=== PATIENT | male | born 1990 | race Caucasian/White ===

== ENCOUNTER 2019-08-03 09:29 | Emergency (ER) | payer MEDICAID ==
[~2019-08-03] VITALS: Ht 180.3 cm; Wt 91.0 kg
[2019-08-03] MEDS ORDERED: KETOROLAC 60MG/2ML VIAL IM ONE (12:45)
[2019-08-03 14:35] VITALS: BP 135/82
== END 2019-08-03 14:38 | disposition home or self-care (01) ==
LOC: ER 09:29
DX: S02.652A Fracture of angle of left mandible, initial encounter for closed fracture (principal); Y04.2XXA Assault by strike against or bumped into by another person, initial encounter; Y93.89 Activity, other specified; Y92.89 Other specified places as the place of occurrence of the external cause; K02.9 Dental caries, unspecified; K04.7 Periapical abscess without sinus
CPT/HCPCS: 70110; 96372; 99283; J1885

== ENCOUNTER 2021-11-19 10:56 | Emergency (ER) | payer SELFPAY ==
[~2021-11-19] VITALS: Ht 180.3 cm; Wt 86.0 kg
[2021-11-19 11:07] VITALS: BP 130/85
[2021-11-19] MEDS ORDERED: SODIUM CHLORIDE 0.9% 1,000 ML IV ONE (12:00)
[2021-11-19] MEDS ORDERED: ACETAMINOPHEN 325MG TABLET PO ONE (12:30)
[2021-11-19 12:35] LABS: BASOPHILS % 0.3 % (0.0-2.0); EOSINOPHILS % 0.7 % (0.0-5.0); HEMATOCRIT. 48.3 % (42.0-52.0); HEMOGLOBIN. 16.5 g/dL (14.0-18.0); LYMPHOCYTES % 21.9 % (20.0-50.0); MEAN CORPUSCULAR HEMOGLOBIN 29.7 pg (28.0-32.0); MEAN PLATELET VOLUME 8.7 fl (7.4-10.4); NEUTROPHILS % 72.1 % (40.0-76.0); PLATELET 284 x1000/uL (130-400); RED BLOOD CELL COUNT 5.55 mill/uL (4.7-6.1); RED CELL DISTRIBUTION WIDTH 13.4 % (11.6-14.6)
[2021-11-19 12:44] LABS: CHLORIDE 109 mEq/L (98-107)
[2021-11-19 12:51] LABS: ETHANOL BLOOD 127 mg/dL
== END 2021-11-19 17:19 | disposition home or self-care (01) ==
LOC: ER 10:58
DX: R51.9 Headache, unspecified (principal); F10.129 Alcohol abuse with intoxication, unspecified; Y90.6 Blood alcohol level of 120-199 mg/100 ml
CPT/HCPCS: 36415; 80053; 80320; 85025; 99283; J7030; G0480

== ENCOUNTER 2022-02-23 16:06 | Emergency (ER) | payer SELFPAY ==
[~2022-02-23] VITALS: Ht 177.8 cm; Wt 82.0 kg
[2022-02-23] MEDS ORDERED: SODIUM CHLORIDE 0.9% 1,000 ML IV ONE (16:30)
[2022-02-23 16:48] LABS: BASOPHILS % 0.3 % (0.0-2.0); EOSINOPHILS % 0.3 % (0.0-5.0); HEMOGLOBIN. 15.8 g/dL (14.0-18.0); LYMPHOCYTES % 22.7 % (20.0-50.0); MEAN CORPUSCULAR HEMOGLOBIN 29.2 pg (28.0-32.0); MEAN CORPUSCULAR VOLUME 86.9 fL (80.0-94.0); MEAN PLATELET VOLUME 8.5 fl (7.4-10.4); NEUTROPHILS % 71.7 % (40.0-76.0); PLATELET 267 x1000/uL (130-400); RED BLOOD CELL COUNT 5.41 mill/uL (4.7-6.1); RED CELL DISTRIBUTION WIDTH 13.1 % (11.6-14.6)
[2022-02-23 16:52] LABS: CHLORIDE 110 mEq/L (98-107)
[2022-02-23 16:56] LABS: ETHANOL BLOOD < 10 mg/dL
[2022-02-23] MEDS ORDERED: CHLORDIAZEPOXIDE 25MG CAPSULE PO ONE (17:45)
[2022-02-23] MEDS ORDERED: CHLORDIAZEPOXIDE 25MG CAPSULE PO NR (18:15)
[2022-02-23] MEDS ORDERED: CHLO25CA10 PO (19:29)
[2022-02-23] MEDS ORDERED: L25 MT (19:33)
[2022-02-23 22:00] VITALS: BP 112/63
[2022-02-23] MEDS ORDERED: CHLORDIAZEPOXIDE 25MG CAPSULE PO SCH (22:00)
== END 2022-02-23 22:15 | disposition home or self-care (01) ==
LOC: ER 16:06
DX: F10.239 Alcohol dependence with withdrawal, unspecified (principal); Y90.0 Blood alcohol level of less than 20 mg/100 ml; R07.89 Other chest pain; R06.02 Shortness of breath
CPT/HCPCS: 36415; 80048; 80320; 85025; 93005; 96360; 99285; J7030; G0480

== ENCOUNTER 2022-09-24 07:08 | Emergency (ER) | payer MEDICAID ==
[~2022-09-24] VITALS: Ht 180.3 cm; Wt 96.6 kg
[~2022-09-24 07:08] MED LIST: L25 MT
[2022-09-24 07:13] VITALS: BP 133/86
[2022-09-24] MEDS ORDERED: ACET-2708 MT (08:38)
[2022-09-24] MEDS ORDERED: IBUP-2028 MT (08:38)
== END 2022-09-24 09:22 | disposition home or self-care (01) ==
LOC: ER 07:08
DX: M25.521 Pain in right elbow (principal); M25.522 Pain in left elbow
CPT/HCPCS: 99281; 99282

== ENCOUNTER 2022-11-16 14:57 | Emergency (ER) | payer MEDICAID ==
[~2022-11-16] VITALS: Ht 177.8 cm; Wt 86.0 kg
[~2022-11-16 14:57] MED LIST changes: +ACET-2708 MT; +IBUP-2028 MT
[2022-11-16] MEDS ORDERED: PANTOPRAZOLE SODIUM 40 MG/VIAL IV ONE (16:15)
[2022-11-16] MEDS ORDERED: SODIUM CHLORIDE 0.9% 1,000 ML IV ONE (16:15)
[2022-11-16] MEDS ORDERED: LORAZEPAM 1MG TABLET PO ONE (16:15)
[2022-11-16 16:17] LABS: BASOPHILS % 0.3 % (0.0-2.0); EOSINOPHILS % 0.2 % (0.0-5.0); HEMATOCRIT. 47.4 % (42.0-52.0); HEMOGLOBIN. 16.2 g/dL (14.0-18.0); LYMPHOCYTES % 19.3 % (20.0-50.0); MEAN CORPUSCULAR HEMOGLOBIN 30.3 pg (28.0-32.0); MEAN CORPUSCULAR VOLUME 88.7 fL (80.0-94.0); MEAN PLATELET VOLUME 8.9 fl (7.4-10.4); MONOCYTES % 5.4 % (2.0-8.0); NEUTROPHILS % 74.8 % (40.0-76.0); PLATELET 271 x1000/uL (130-400); RED BLOOD CELL COUNT 5.34 mill/uL (4.7-6.1); RED CELL DISTRIBUTION WIDTH 13.6 % (11.6-14.6)
[2022-11-16 16:28] LABS: CHLORIDE 109 mEq/L (98-107)
[2022-11-16] MEDS ORDERED: FAMO40TA70 MT (19:59)
[2022-11-16] MEDS ORDERED: L25 MT (19:59)
[2022-11-16] MEDS ORDERED: ACET-2708 MT (19:59)
[2022-11-16 20:00] VITALS: BP 127/71
== END 2022-11-16 20:11 | disposition home or self-care (01) ==
LOC: ER 14:57
DX: R06.02 Shortness of breath (principal)
CPT/HCPCS: 36415; 71045; 80053; 83880; 84484; 85025; 93005; 96374; 99285; C9113; J7030

== ENCOUNTER 2023-01-21 12:08 | Emergency (ER) | payer MEDICAID ==
[~2023-01-21] VITALS: Ht 180.3 cm; Wt 91.0 kg
[~2023-01-21 12:08] MED LIST changes: +FAMO40TA70 MT; -L25 MT
[2023-01-21 12:11] VITALS: BP 153/103; RESP 18; TEMP 98.5; O2SAT 99
[2023-01-21 12:12] VITALS: PULSE 138
== END 2023-01-21 16:28 ==
LOC: ER 12:10
DX: R00.2 Palpitations (principal); Z13.9 Encounter for screening, unspecified
CPT/HCPCS: 93005; 99283

== ENCOUNTER 2023-02-18 15:00 | Emergency (ER) | payer MEDICAID ==
[~2023-02-18] VITALS: Ht 177.8 cm; Wt 65.0 kg
[2023-02-18 15:02] VITALS: O2SAT 96
[2023-02-18] MEDS ORDERED: LORAZEPAM 1MG TABLET PO ONE (15:30)
[2023-02-18 16:01] LABS: BASOPHILS % 0.4 % (0.0-2.0); EOSINOPHILS % 1.2 % (0.0-5.0); HEMATOCRIT. 42.3 % (42.0-52.0); HEMOGLOBIN. 14.5 g/dL (14.0-18.0); LYMPHOCYTES % 34.3 % (20.0-50.0); MEAN CORPUSCULAR HEMOGLOBIN 30.4 pg (28.0-32.0); MEAN CORPUSCULAR VOLUME 88.9 fL (80.0-94.0); MEAN PLATELET VOLUME 8.4 fl (7.4-10.4); MONOCYTES % 6.6 % (2.0-8.0); NEUTROPHILS % 57.5 % (40.0-76.0); PLATELET 234 x1000/uL (130-400); RED BLOOD CELL COUNT 4.76 mill/uL (4.7-6.1); RED CELL DISTRIBUTION WIDTH 13.4 % (11.6-14.6)
[2023-02-18 16:06] LABS: CHLORIDE 106 mEq/L (98-107)
[2023-02-18 19:20] VITALS: BP 170/96; PULSE 87; RESP 16; TEMP 99.3
== END 2023-02-18 19:22 | disposition home or self-care (01) ==
LOC: ER 15:00
DX: R00.2 Palpitations (principal); R00.0 Tachycardia, unspecified; F10.980 Alcohol use, unspecified with alcohol-induced anxiety disorder; F41.9 Anxiety disorder, unspecified; Y90.9 Presence of alcohol in blood, level not specified
CPT/HCPCS: 36415; 80053; 84484; 85025; 93005; 99284

== ENCOUNTER 2023-03-11 08:19 | Emergency (ER) | payer MEDICAID ==
[~2023-03-11] VITALS: Ht 180.3 cm; Wt 84.0 kg
[2023-03-11 08:26] VITALS: O2SAT 98
[2023-03-11 09:06] LABS: CHLORIDE 106 mEq/L (98-107); INDEX HEMOLYSI 1 (1-3); INDEX ICTERIC 1 (1-4); INDEX LIPEMIC 1 (1-3); POTASSIUM 3.3 mEq/L (3.5-5.1); SODIUM 137 mEq/L (136-145)
[2023-03-11 09:09] LABS: BASOPHILS % 0.2 % (0.0-2.0); EOSINOPHILS % 0.1 % (0.0-5.0); HEMATOCRIT. 47.4 % (42.0-52.0); LYMPHOCYTES % 14.9 % (20.0-50.0); MEAN CORPUSCULAR HEMOGLOBIN 29.8 pg (28.0-32.0); MEAN CORPUSCULAR HGB CONC 33.7 g/dL (31.0-37.0); MEAN CORPUSCULAR VOLUME 88.6 fL (80.0-94.0); MEAN PLATELET VOLUME 8.5 fl (7.4-10.4); NEUTROPHILS % 79.8 % (40.0-76.0); PLATELET 299 x1000/uL (130-400); RED BLOOD CELL COUNT 5.36 mill/uL (4.7-6.1); RED CELL DISTRIBUTION WIDTH 13.9 % (11.6-14.6); WHITE BLOOD COUNT 11.2 x1000/uL (4.5-11.0)
[2023-03-11 09:18] LABS: ALANINE AMINOTRANSFERASE 35 IU/L (13-61); ALBUMIN 4.2 g/dL (3.4-5.0); ASPARTATE AMINOTRANSFERASE 20 IU/L (15-37); BILIRUBIN TOTAL 0.4 mg/dL (0.1-1.0); CALCIUM 9.2 mg/dL (8.5-10.1); CARBON DIOXIDE 18 mEq/L (21-32); CREATININE 0.9 mg/dL (0.6-1.3); GLUCOSE 109 mg/dL (70-105); NT PRO B-TYPE NATRIURETIC PEP 7 pg/mL (5-125); PROTEIN TOTAL 8.1 g/dL (6.0-8.3); TROPONIN I HIGH SENSITIVITY 31 ng/L (<78); UREA NITROGEN BLOOD 9 mg/dL (7-21)
[2023-03-11] MEDS ORDERED: ONDANSETRON HCL 4MG/2ML INJ IV STA (09:50)
[2023-03-11] MEDS ORDERED: SODIUM CHLORIDE 0.9% 1,000 ML IV ONE (10:00)
[2023-03-11] MEDS ORDERED: ONDA4TAB50 PO (11:47)
[2023-03-11 11:48] VITALS: BP 141/95; PULSE 109; RESP 18
== END 2023-03-11 11:54 | disposition home or self-care (01) ==
LOC: ER 08:23
DX: R53.1 Weakness (principal); F41.9 Anxiety disorder, unspecified; Z79.899 Other long term (current) drug therapy
CPT/HCPCS: 99285; 96374; 71045; 96361; 80053; 83880; 85025; 84484; 36415; 93005; J2405; J7030

== ENCOUNTER 2023-11-05 16:08 | Emergency (ER) | payer SELFPAY ==
[~2023-11-05] VITALS: Ht 180.3 cm; Wt 91.0 kg
[~2023-11-05 16:08] MED LIST changes: +ONDA4TAB50 PO
[2023-11-05 16:15] VITALS: BP 133/78; PULSE 100; RESP 16; TEMP 97.9; O2SAT 100
[2023-11-05] MEDS ORDERED: ONDANSETRON 4MG ODT PO STA (16:25)
== END 2023-11-05 19:28 | disposition left against medical advice (07) ==
LOC: ER 16:08
DX: F10.129 Alcohol abuse with intoxication, unspecified (principal); F41.9 Anxiety disorder, unspecified; Z98.890 Other specified postprocedural states; Y90.9 Presence of alcohol in blood, level not specified
CPT/HCPCS: 93005; 99283

== ENCOUNTER 2023-11-19 05:41 | Emergency (ER) | payer SELFPAY ==
[~2023-11-19] VITALS: Ht 175.3 cm; Wt 90.0 kg
[2023-11-19 05:45] VITALS: BP 129/90; PULSE 102; RESP 14; TEMP 98.3; O2SAT 98
== END 2023-11-19 08:18 | disposition left against medical advice (07) ==
LOC: ER 05:41
DX: R11.2 Nausea with vomiting, unspecified (principal); Z53.21 Procedure and treatment not carried out due to patient leaving prior to being seen by health care provider
CPT/HCPCS: 99281

== ENCOUNTER 2024-04-29 06:58 | Emergency (ER) | payer SELFPAY ==
[~2024-04-29] VITALS: Ht 180.3 cm; Wt 91.0 kg
[2024-04-29 07:02] VITALS: O2SAT 100
[2024-04-29 07:47] LABS: CARBON DIOXIDE 23 mEq/L (21-32)
[2024-04-29 07:48] LABS: CALCIUM 10.1 mg/dL (8.7-10.4)
[2024-04-29 07:51] LABS: BASOPHILS % 0.3 % (0.0-2.0); EOSINOPHILS % 0.6 % (0.0-5.0); HEMATOCRIT. 44.8 % (42.0-52.0); HEMOGLOBIN. 14.8 g/dL (14.0-18.0); LYMPHOCYTES % 22.5 % (20.0-50.0); MEAN CORPUSCULAR HEMOGLOBIN 29.7 pg (28.0-32.0); MEAN CORPUSCULAR HGB CONC 33.1 g/dL (31.0-37.0); MEAN CORPUSCULAR VOLUME 89.7 fL (80.0-94.0); MEAN PLATELET VOLUME 8.4 fl (7.4-10.4); MONOCYTES % 5.4 % (2.0-8.0); NEUTROPHILS % 71.2 % (40.0-76.0); PLATELET 249 x1000/uL (130-400); RED BLOOD CELL COUNT 4.99 mill/uL (4.7-6.1); RED CELL DISTRIBUTION WIDTH 14.1 % (11.6-14.6); WHITE BLOOD COUNT 7.2 x1000/uL (4.5-11.0)
[2024-04-29 07:52] LABS: CREATININE 0.8 mg/dL (0.6-1.3); GLUCOSE 122 mg/dL (70-105)
[2024-04-29 07:53] LABS: CHLORIDE 106 mEq/L (98-107); ETHANOL BLOOD < 10 mg/dL (<10); POTASSIUM 3.3 mEq/L (3.5-5.1); SODIUM 142 mEq/L (136-145); TROPONIN I HIGH SENSITIVITY 17 ng/L (3.0-53); UREA NITROGEN BLOOD 7 mg/dL (9-23)
[2024-04-29 07:54] LABS: ALANINE AMINOTRANSFERASE 24 IU/L (10-49); ALBUMIN 4.9 g/dL (3.2-4.8); ASPARTATE AMINOTRANSFERASE 24 IU/L (<34)
[2024-04-29 07:55] LABS: BILIRUBIN DIRECT 0.1 mg/dL (<=3.0); BILIRUBIN TOTAL 0.5 mg/dL (0.1-1.0); PROTEIN TOTAL 7.6 g/dL (6.0-8.3)
[2024-04-29] MEDS: SODIUM CHLORIDE 0.9% 1,000 ML IV ONE (08:19)
[2024-04-29] MEDS: FAMOTIDINE 20MG/2ML VIAL IV STA (08:19)
[2024-04-29] MEDS: ONDANSETRON HCL 4MG/2ML INJ IV STA (08:19)
[2024-04-29] MEDS: LORAZEPAM 2MG/ML INJ IV ONE (08:19)
[2024-04-29] MEDS: POTASSIUM CHLORIDE 20MEQ TABLET SR PO NR (09:34)
[2024-04-29 09:46] VITALS: TEMP 36.72516
[2024-04-29 10:18] LABS: TROPONIN I HIGH SENSITIVITY 16 ng/L (3.0-53)
[2024-04-29] MEDS ORDERED: LORA-250 MT (10:40)
[2024-04-29] MEDS ORDERED: ONDA4TAB50 MT (10:40)
[2024-04-29 11:30] VITALS: BP 131/99; PULSE 100; RESP 20; O2SAT 98
== END 2024-04-29 11:42 | disposition home or self-care (01) ==
LOC: ER 06:58
DX: F10.239 Alcohol dependence with withdrawal, unspecified (principal); E87.6 Hypokalemia; Z79.899 Other long term (current) drug therapy; Y90.0 Blood alcohol level of less than 20 mg/100 ml
CPT/HCPCS: 80076; 80048; 80320; 83690; 85025; 84484; 36415; 71045; 93005; 96361; 96374; 96375; 99285; J3490; J2060; J2405; J7030; Z7610 ×2; G0480

== ENCOUNTER 2024-05-01 16:29 | Emergency (ER) | payer SELFPAY ==
[~2024-05-01] VITALS: Ht 175.3 cm; Wt 90.0 kg
[~2024-05-01 16:29] MED LIST changes: +LORA-250 MT; +ONDA4TAB50 MT
[2024-05-01 16:34] VITALS: O2SAT 96
[2024-05-01] MEDS: ONDANSETRON 4MG ODT PO STA (18:53)
[2024-05-01 19:17] LABS: BASOPHILS % 0.3 % (0.0-2.0); EOSINOPHILS % 0.6 % (0.0-5.0); HEMATOCRIT. 42.7 % (42.0-52.0); HEMOGLOBIN. 14.5 g/dL (14.0-18.0); LYMPHOCYTES % 29.9 % (20.0-50.0); MEAN CORPUSCULAR HEMOGLOBIN 30.4 pg (28.0-32.0); MEAN CORPUSCULAR VOLUME 89.3 fL (80.0-94.0); MONOCYTES % 5.6 % (2.0-8.0); NEUTROPHILS % 63.6 % (40.0-76.0); PLATELET 248 x1000/uL (130-400); RED BLOOD CELL COUNT 4.78 mill/uL (4.7-6.1); RED CELL DISTRIBUTION WIDTH 14.2 % (11.6-14.6); WHITE BLOOD COUNT 7.4 x1000/uL (4.5-11.0)
[2024-05-01 19:24] LABS: CLARITY URINE CLEAR (CLEAR); COLOR URINE YELLOW (YELLOW); GLUCOSE URINE NEGATIVE (NEGATIVE); KETONES URINE NEGATIVE (NEGATIVE); LEUKOCYTE ESTERASE URINE NEGATIVE (NEGATIVE); NITRITE URINE NEGATIVE (NEGATIVE); OCCULT BLOOD URINE NEGATIVE (NEGATIVE); PROTEIN URINE NEGATIVE (NEGATIVE); SPECIFIC GRAVITY URINE 1.006 (1.005-1.030); UROBILINOGEN URINE 0.2 E.U./dL (0.2-1.0)
[2024-05-01 19:26] LABS: CHLORIDE 106 mEq/L (98-107); POTASSIUM 3.6 mEq/L (3.5-5.1); SODIUM 140 mEq/L (136-145)
[2024-05-01 19:27] LABS: CARBON DIOXIDE 25 mEq/L (21-32)
[2024-05-01 19:28] LABS: CALCIUM 9.4 mg/dL (8.7-10.4)
[2024-05-01 19:32] LABS: *AMPHETAMINES SCREEN URINE NEGATIVE (NEGATIVE)
[2024-05-01 19:32] LABS: CREATININE 0.9 mg/dL (0.6-1.3); GLUCOSE 99 mg/dL (70-105); UREA NITROGEN BLOOD 7 mg/dL (9-23)
[2024-05-01 19:33] LABS: *BARBITURATES SCREEN URINE NEGATIVE (NEGATIVE); *BENZODIAZEPINES SCREEN URINE NEGATIVE (NEGATIVE); *COCAINE SCREEN URINE NEGATIVE (NEGATIVE); CANNABINOID URINE SCREEN NEGATIVE (NEGATIVE); ECSTASY MDMA SCREEN URINE NEGATIVE (NEGATIVE); METHADONE URINE SCREEN NEGATIVE (NEGATIVE); OPIATES URINE SCREEN NEGATIVE (NEGATIVE); PHENCYCLIDINE URINE SCREEN NEGATIVE (NEGATIVE)
[2024-05-01 19:34] LABS: ACETAMINOPHEN < 2 ug/mL (10-30)
[2024-05-01 19:42] LABS: ETHANOL BLOOD 305 mg/dL (<10)
[2024-05-02] MEDS: CHLORDIAZEPOXIDE 10MG CAPSULE PO ONE (00:43)
[2024-05-02 05:05] VITALS: BP 118/85; PULSE 67; RESP 16; TEMP 37.05852; O2SAT 98
== END 2024-05-02 05:07 | disposition home or self-care (01) ==
LOC: ER 16:29
DX: T51.0X1A Toxic effect of ethanol, accidental (unintentional), initial encounter (principal); F14.90 Cocaine use, unspecified, uncomplicated; Z79.899 Other long term (current) drug therapy; Y90.8 Blood alcohol level of 240 mg/100 ml or more
CPT/HCPCS: 80305; 80048; 81003; 80307; 80329; 80320; 85025; 36415; 99285; Q0162; G0480

== ENCOUNTER 2024-05-21 14:51 | Emergency (ER) | payer SELFPAY ==
[~2024-05-21] VITALS: Ht 172.7 cm; Wt 70.0 kg
[2024-05-21 14:54] VITALS: BP 129/87; PULSE 106; RESP 16; TEMP 98.1; O2SAT 95
[2024-05-21] MEDS ORDERED: ONDANSETRON HCL 4MG/2ML INJ IV ONE (15:00)
[2024-05-21] MEDS ORDERED: FOLIC ACID 1 MG, THIAMINE HCL 100 MG, MVI, ADULT NO.1 10 ML in DEXTROSE 5% WATER 1,000 ML IV ONE (15:00)
[2024-05-21 15:24] LABS: BASOPHILS % 0.3 % (0.0-2.0); EOSINOPHILS % 0.4 % (0.0-5.0); HEMATOCRIT. 44.3 % (42.0-52.0); HEMOGLOBIN. 15.5 g/dL (14.0-18.0); LYMPHOCYTES % 37.2 % (20.0-50.0); MEAN CORPUSCULAR HEMOGLOBIN 31.5 pg (28.0-32.0); MEAN CORPUSCULAR VOLUME 89.9 fL (80.0-94.0); MEAN PLATELET VOLUME 7.6 fl (7.4-10.4); MONOCYTES % 5.7 % (2.0-8.0); NEUTROPHILS % 56.4 % (40.0-76.0); PLATELET 276 x1000/uL (130-400); RED BLOOD CELL COUNT 4.93 mill/uL (4.7-6.1); RED CELL DISTRIBUTION WIDTH 14.5 % (11.6-14.6); WHITE BLOOD COUNT 5.8 x1000/uL (4.5-11.0)
[2024-05-21 15:32] LABS: CARBON DIOXIDE 31 mEq/L (21-32); CHLORIDE 107 mEq/L (98-107); SODIUM 146 mEq/L (136-145)
[2024-05-21 15:33] LABS: CALCIUM 10.1 mg/dL (8.7-10.4)
[2024-05-21 15:37] LABS: CREATININE 1.2 mg/dL (0.6-1.3); GLUCOSE 99 mg/dL (70-105)
[2024-05-21 15:38] LABS: ETHANOL BLOOD 300 mg/dL (<10); UREA NITROGEN BLOOD 6 mg/dL (9-23)
[2024-05-21 15:39] LABS: ALANINE AMINOTRANSFERASE 28 IU/L (10-49); ASPARTATE AMINOTRANSFERASE 44 IU/L (<34)
[2024-05-21 15:40] LABS: BILIRUBIN TOTAL 0.2 mg/dL (0.1-1.0)
== END 2024-05-21 21:20 | disposition home or self-care (01) ==
LOC: ER 14:56
DX: F10.229 Alcohol dependence with intoxication, unspecified (principal); F14.10 Cocaine abuse, uncomplicated; R11.2 Nausea with vomiting, unspecified; Z79.899 Other long term (current) drug therapy; Y90.8 Blood alcohol level of 240 mg/100 ml or more
CPT/HCPCS: 36415; 80053; 80320; 85025; 99283; J3411; J3490; J7070; G0480